=== PATIENT | female | born 1990 | race Caucasian/White ===

== ENCOUNTER 2018-12-27 09:18 | Emergency (ER) | payer BC ==
[~2018-12-27] VITALS: Ht 167.6 cm; Wt 90.9 kg
[2018-12-27] MEDS ORDERED: [UNRECOGNIZED DRUG - CODE] PO (09:25)
[2018-12-27 11:25] VITALS: BP 129/79
== END 2018-12-27 12:32 | disposition home or self-care (01) ==
LOC: EMS 09:23
DX: K64.4 Residual hemorrhoidal skin tags (principal); F12.90 Cannabis use, unspecified, uncomplicated; Z98.890 Other specified postprocedural states